=== PATIENT | female | born 2000 | race Caucasian/White ===

== ENCOUNTER 2024-12-29 13:08 | Inpatient (IN) | payer MEDICAID, OTHER ==
[2024-12-30] MEDS ORDERED: MAGNESIUM HYDROXIDE 2,400 MG/30 ML CUP PO PRN (04:22)
[2024-12-30] MEDS ORDERED: LORazepam 1 MG TAB PO PRN (04:22)
[2024-12-30] MEDS ORDERED: haloperidoL 5 MG TAB PO PRN (04:22)
[2024-12-30] MEDS ORDERED: OLANZapine 10 MG VIAL IM PRN (04:22)
[2024-12-30] MEDS ORDERED: LORazepam 2 MG/ML INJ IM PRN (04:22)
[2024-12-30] MEDS ORDERED: MAG HYDROX/AL HYDROX/SIMETH 355 ML BOTTLE PO PRN (04:22)
[2024-12-30] MEDS: ACETAMINOPHEN TAB 325 MG TAB PO PRN (08:37)
[2024-12-30] MEDS: NICOTINE 14MG/24HR PATCH TRANSDERM SCH (09:23)
[2024-12-30 10:00] LABS: Basophils % (A) 0 %; Eosinophils # (A) 0.3 k/uL (0-0.7); Eosinophils % (A) 4 %; HCT 41.9 % (34.0-46.0); HGB 13.2 gm/dL (11.4-16.0); Lymphocytes # (A) 2.4 k/uL (1.0-4.8); Lymphocytes % (A) 35 %; MCHC 31.4 g/dL (31.0-37.0); MCV 92.3 fL (80.0-100.0); Mean Platelet Volume 7.8; Monocytes # (A) 0.6 k/uL (0-1.0); Monocytes % (A) 8 %; Neutrophils # (A) 3.5 k/uL (1.3-7.7); Neutrophils % (A) 51 %; Platelet Count 226 k/uL (150-450); RBC 4.54 m/uL (3.80-5.40); WBC 6.8 k/uL (3.8-10.6)
[2024-12-30 10:08] LABS: ALT 27 U/L (4-34); AST 30 U/L (14-36); African American GFR (CKD) >90 (>60 ml/min/1.73 sqM); Albumin 4.3 g/dL (3.5-5.0); Alkaline Phosphatase 70 U/L (38-126); Anion Gap 8 mmol/L; Blood Urea Nitrogen 15 mg/dL (7-17); Calcium 8.9 mg/dL (8.4-10.2); Carbon Dioxide 31 mmol/L (22-30); Chloride 100 mmol/L (98-107); Glucose 115 mg/dL (74-99); Non-African American GFR(CKD) >90 (>60 ml/min/1.73 sqM); Potassium 4.4 mmol/L (3.5-5.1); Sodium 139 mmol/L (137-145); Total Bilirubin 0.9 mg/dL (0.2-1.3)
[2024-12-30 10:12] VITALS: RESP 16
[2024-12-30] MEDS ORDERED: LOPERAMIDE 2 MG CAP PO PRN (12:04)
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
[2024-12-30] MEDS: VENLAFAXINE HCL ER 75 MG CAP PO SCH (14:23)
[2024-12-30] MEDS: LIDOCAINE 4% PATCH TOPICAL SCH (14:23)
[2024-12-30] MEDS: lamoTRIgine 25 MG TAB PO SCH (14:23)
[2024-12-30] MEDS: IBUPROFEN 600 MG TAB PO PRN (17:15)
[2024-12-30] MEDS: traZODone HCL 100 MG TAB PO SCH (20:28)
--- NOTE | 2024-12-31 04:29 | P.CONS ---
History of Present Illness - Reason for Consult Consult date: 12/31/24 - History of Present Illness The patient is a 24-year-old female who was transferred from [facility] with the patient had presented with depression and suicidal ideation and self-harm. The patient was admitted to the mental health unit where she was seen and evaluated while accompanied by an MHU RN. The patient reports that she has long-term history of depression with suicidal thoughts. She does report chronic lower back pain which is unchanged and mild at the time of interview. She also reports recreational marijuana use but denies alcohol or tobacco use. Does report abusing Percocets, purchasing illegally off the street twice daily. Denies any physical complaints at the time of interview. Denied experiencing chest discomfort, shortness of breath, fever, chills, cough, nausea, vomiting, abdominal pain, diarrhea. Review of systems: Pertinent positives and negatives as discussed in HPI, a complete review of systems was performed and all other systems are negative. Physical examination: General: non toxic, no distress, appears at stated age, normal weight Derm: Superficial lacerations over both forearms and face, no unusual ecchymoses, warm, dry Head: atraumatic, normocephalic, symmetric Eyes: EOMI, no lid lag, anicteric sclera ENT: Nose and ears atraumatic, no thrush, no pharyngeal erythema Neck: trachea midline, supple Mouth: no lip lesion, mucus membranes moist Cardiovascular: S1S2 reg, no murmur, no edema Lungs: CTA bilateral, no rhonchi, no rales , no accessory muscle use Abdominal: soft, nontender to palpation, no guarding Ext: no gross muscle atrophy, no contractures, Neuro: No gross focal neuro deficits noted Psych: Alert, oriented, appropriate affect Assessment: Marijuana abuse Illicit opiate abuse Depression and suicidal ideation Imaging: None performed Data Review: Reviewed with WBC count 6.8, hemoglobin 13.2, sodium 139, potassium 4.4, CO2 31, glucose 115 Plan: Strongly advised on the importance of cessation of substance use Defer management of depression and suicidal ideation to primary psychiatry service Thank you for allowing us to participate in the care of this patient. We will follow peripherally. Do not hesitate to contact us with questions. Someone can be reached from the [facility] hospitalist group at all hours of the day at [phone]. Past Medical History Additional Past Medical History / Comment(s): Chronic Back Pain History of Any Multi-Drug Resistant Organisms: None Reported Past Surgical History: No Surgical Hx Reported Past Anesthesia/Blood Transfusion Reactions: No Reported Reaction Past Psychological History: No Psychological Hx Reported Smoking Status: Never smoker Medications and Allergies Home Medications Medication Instructions Recorded Confirmed Type QUEtiapine [SEROquel] 50 mg PO HS PRN 12/30/24 12/30/24 History traZODone HCL [Desyrel] 200 mg PO HS 12/30/24 12/30/24 History Allergies Allergy/AdvReac Type Severity Reaction Status Date / Time amoxicillin Allergy Unknown Verified 12/29/24 15:58 Physical Exam Vitals: Vital Signs Temp Pulse Resp BP Pulse Ox 12/30/24 10:11 97.5 F L 110 H 16 105/70 96 Results CBC & Chem 7: 12/30/24 08:53 12/30/24 08:53 Labs: Abnormal Lab Results - Last 24 Hours (Table) 12/30/24 12/30/24 Range/Units 08:53 08:53 RDW 16.0 H (11.5-15.5) % Carbon Dioxide 31 H (22-30) mmol/L Glucose 115 H (74-99) mg/dL
[2024-12-31] MEDS: ONDANSETRON ODT 4 MG TAB PO PRN (11:44)
--- NOTE | 2024-12-31 12:39 | P.PN ---
Progress Note - Text Progress Note Date: 12/31/24 Interval History: Patient was seen laying in bed and was directable and agreeable to speak with commercial real estate underwriter in the office. She reports poor sleep overnight described as difficulties with both falling and staying asleep. Expressed withdrawal symptoms including shaking, loose stools however is not agreeable with rehab today. She was encouraged to become established with a primary care doctor so that she can get started on Suboxone or methadone given her daily opiate use. Patient otherwise reported low depressive symptoms today, states she has spoke to her mom. At this time patient denies any suicidal or homicidal ideations, intent or plan. Patient denies any auditory, visual hallucinations and denies any paranoia or delusions. Patient denies any side effects from the medications and has been compliant with meds. Mental Status Exam: General Appearance: Patient appears to be stated age is alert, directable, and cooperative. She has red dyed hair Behavior: Patient is calmly seated without any agitated behavior. Patient displayed chills Speech: Patient's speech is fluent and nonpressured. Mood/Affect: Mood is improving mildly, affect is congruent and blunted. Suicidality/Homicidality: Patient denies having any suicidal or homicidal ideation intent or plan. Perceptions: Patient denies any visual hallucinations and denies any auditory hallucinations Though content/process: There is no evidence of any delusional thought content and thought process is linear and goal-directed. Memory and concentration: AOX3, grossly intact for the purposes of this session Judgment and insight: Improving mildly Assessment Depression, unspecified Rule out substance-induced depressive disorder versus MDD Cluster B traits PTSD Opioid use disorder Cannabis use disorder Plan: -Patient continues to meet criteria for inpatient psychiatric admission for symptom stabilization and safety. Patient has signed adult voluntary form and medication consent and was placed in patient's chart. -Medications: Continue Effexor XR 75 mg daily for depression/anxiety, lamotrigine 25 mg daily for mood stabilization, increase trazodone to 150 mg at bedtime for insomnia, start melatonin 10 mg at bedtime for insomnia -When necessary Ativan and Haldol for agitation/aggression. -Labs: Reviewed -SW on board for discharge planning. Encouraged the patient to participate in milieu. Anticipate discharge back home with mom tomorrow
[2024-12-31] MEDS: PERMETHRIN 1% CREME RINSE 59 ML LIQUID TOPICAL ONE (21:41)
[2024-12-31] MEDS: MELATONIN 5 MG TABLET PO SCH (21:41)
[2024-12-31] MEDS: traZODone HCL 50 MG TAB PO SCH (21:41)
[2024-12-31 22:57] VITALS: TEMP 97.6
[2025-01-01 10:49] LABS: Glucose,Whole Blood 99 mg/dL (70-110)
[2025-01-01 10:52] VITALS: BP 104/66; PULSE 102
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
== END 2025-01-01 12:07 | disposition home or self-care (01) | DRG 751 ==
LOC: 3MHU 18:33
PROVIDERS: ADMIT Psychiatry & Neurology Psychiatry; ATTEND Psychiatry & Neurology Psychiatry
DX: F32.A Depression, unspecified (principal); F60.89 Other specific personality disorders; F43.10 Post-traumatic stress disorder, unspecified; F11.10 Opioid abuse, uncomplicated; F12.10 Cannabis abuse, uncomplicated; F41.9 Anxiety disorder, unspecified; G47.00 Insomnia, unspecified; G89.29 Other chronic pain; M54.50 Low back pain, unspecified; X78.9XXD Intentional self-harm by unspecified sharp object, subsequent encounter; Z56.0 Unemployment, unspecified; Z79.899 Other long term (current) drug therapy; Z81.8 Family history of other mental and behavioral disorders; Z91.51 Personal history of suicidal behavior; Z91.52 Personal history of nonsuicidal self-harm; Z88.0 Allergy status to penicillin; Z62.810 Personal history of physical and sexual abuse in childhood
CPT/HCPCS: 80053; 84443; 85025